=== PATIENT | male | born 1970 | race Caucasian/White ===

== ENCOUNTER 2020-08-24 01:43 | Outpatient (CLI) | payer OTHER, SELFPAY ==
[2020-08-24 18:40] LABS: SARS-CoV-2 RNA PCR Negative
== END 2020-08-24 01:44 | disposition home or self-care (01) ==
LOC: ANHCOVIDDT 01:43
PROVIDERS: PCP Internal Medicine; Visit Provider Internal Medicine Gastroenterology
DX: Z01.812 Encounter for preprocedural laboratory examination (principal); Z20.828 Contact with and (suspected) exposure to other viral communicable diseases
CPT/HCPCS: 87635; C9803; U0003

== ENCOUNTER 2020-08-26 00:47 | Day surgery (SDC) | payer OTHER, SELFPAY ==
[2020-08-22 10:27] VITALS: BMI 32.8
--- NOTE | 2020-08-26 11:56 | WPDANESEPPF ---
Anes - Initial Pre Proc Eval Procedure: Operation Date: 08/26/20 13:00 Proposed Procedures p Screening Colonoscopy - Ryan Dillard MD Date/Time: 08/26/20 11:56 Surgeon: Ryan Dillard MD Pre Op Diagnosis: Neoplasm Screening Patient Data Age: 49 Gender: M Height: 5 ft 8 in Weight: 98 kg Allergies Allergy/AdvReac Type Severity Reaction Status Date / Time Sulfa (Sulfonamide Allergy Mild Rash Verified 08/22/20 10:26 Antibiotics) Home Medications Medication Instructions Recorded Confirmed Type No Home Medications 08/22/20 08/22/20 History Patient hx anesthesia problems: none Family hx anesthesia problems: none [facility] Social History Social History Smoking status: Never smoker Second hand tobacco smoke exposure: No Alcohol intake: current Substance use: never Substance use type: does not use Living arrangements: with family Spiritual care concerns: No Anes - Eval Final PreProcedure Day of Procedure 08/26/20 11:56 Patient weight: overweight Heart: regular rate and rhythm Lungs: clear to auscultation Airway: Mallampati scale class II Neurological: alert and oriented Last oral intake: >/= 8 hours ASA classification: II Emergent: no Anesthetic plan: proceed Anesthesia type and monitoring: general GIVS and standard monitoring Informed Consent: The patient's anesthetic plan and its attendant risks and benefits were discussed with the patient/family/POA. Questions were solicited and answers provided to the satisfaction of the patient/family/POA.
[2020-08-26 12:04] VITALS: BP 121/78; PULSE 101; RESP 20; TEMP 36.7; O2SAT 98
[2020-08-26] MEDS: LACTATED RINGERS 1,000 ML 150 ML IV CONT (12:12)
--- NOTE | 2020-08-26 12:45 | PM.HPGS ---
History of Present Illness History of Present Illness Consent: Risks, benefits, and alternatives have been discussed and questions answered. Patient agrees to proceed with procedure. Chief complaint: Neoplasm Screening Narrative: Darron Wiggins is a 49 year old male here for first screening colon Review of Systems Constitutional: Constitutional: Denies headache(s) and Denies weakness Eyes: Eyes: Denies blurry vision ENT: Reports Normal hearing present, Denies headache(s) and Denies neck pain Cardiovascular: Cardiovascular: Denies chest pain and Denies dyspnea Respiratory: Respiratory: Denies dyspnea Gastrointestinal: Gastrointestinal: Reports no additional gastrointestinal complaints Genitourinary: Genitourinary: Denies dysuria Musculoskeletal: Musculoskeletal: Denies neck pain Integumentary/Breasts: Skin/Breast: Denies dry skin Neurologic: Reports Normal hearing present, Denies headache(s) and Denies weakness Psychiatric: Psychiatric: Denies anxiety Endocrine: Endocrine: Denies change in body appearance Hematologic/Lymphatic: Hematologic/Lymphatic: Denies easy bleeding Allergic/Immunologic: Allergic/Immunologic: Denies urticaria PMFSH Social History Social History Smoking status: Never smoker Second hand tobacco smoke exposure: No Alcohol intake: current Substance use: never Substance use type: does not use Living arrangements: with family Spiritual care concerns: No Meds Home Medications and Allergies Home Medications Medication Instructions Recorded Confirmed Type No Home Medications 08/22/20 08/22/20 History Allergies Allergy/AdvReac Type Severity Reaction Status Date / Time Sulfa (Sulfonamide Allergy Mild Rash Verified 08/26/20 12:03 Antibiotics) Vital Signs Vital Signs - 24 hr 08/26/20 12:04 Temperature 98.1 F Pulse Rate 101 H Respiratory Rate 20 Blood Pressure 121/78 Pulse Oximetry 98 Exam Const: General: comfortable and no acute distress HENMT: General nose exam: Normal nares present Eyes: General: appearance normal, both eyes and all related structures Neck: Neck: no JVD Resp: Auscultation: clear to auscultation bilaterally Cardio: Rate: regular rate Rhythm: regular rhythm GI: Inspection: non-distended GI Palp: Yes Soft to palpation Skin: General skin exam: normal color Neuro: General: gait normal Speech: normal speech Extrem: General: normal to inspection Psych: Mental Status: mental status grossly normal Assessment and Plan Assessment and plan (1) Colon cancer screening: Code(s): Z12.11 - Encounter for screening for malignant neoplasm of colon Status: Acute Assessment and Plan: will proceed with colonoscopy
[2020-08-26] MEDS: CENTRAL LINE FLUSH 10 ML XX (12:59)
[2020-08-26 13:05] VITALS: BP 105/78; PULSE 81; RESP 26; O2SAT 96
[2020-08-26 13:15] VITALS: BP 108/70; PULSE 76; RESP 24; O2SAT 96
[2020-08-26 13:25] VITALS: BP 115/66; PULSE 77; RESP 27; O2SAT 97
--- NOTE | 2020-08-26 14:29 | SUR.PHASEII ---
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
== END 2020-08-26 14:20 | disposition home or self-care (01) ==
PROVIDERS: PCP Internal Medicine; Visit Provider Internal Medicine Gastroenterology
PROC: 0DJD8ZZ Inspection of Lower Intestinal Tract, Via Natural or Artificial Opening Endoscopic (ICD-10-PCS; CPT 45378; principal; 2020-08-26 13:00)
DX: Z12.11 Encounter for screening for malignant neoplasm of colon (principal); D12.0 Benign neoplasm of cecum; D12.2 Benign neoplasm of ascending colon; K64.8 Other hemorrhoids
CPT/HCPCS: 45385; 45381; 87635; 88305; C9803; J2704; J7120; U0003

== ENCOUNTER 2022-05-20 17:01 | Emergency (ER) | payer OTHER, SELFPAY ==
[2022-05-20 17:07] VITALS: BP 145/73; PULSE 87; RESP 16; TEMP 36.6; O2SAT 99
--- NOTE | 2022-05-20 17:15 | ED.SKABFB ---
HPI - Skin/Abscess/Foreign Bdy General Chief complaint: Skin/Abscess/Foreign Body Stated complaint: Lac on left palm Time Seen by Provider: 05/20/22 17:15 Source: patient and RN notes reviewed History of Present Illness HPI narrative: Patient is a 51-year-old male who presents the urgent care with the spouse with complaints of a laceration to the left wrist/palmar area. Patient states that just prior to arrival he was opening a Father's Day gift with a pocket knife which slipped and hit his hand. Patient states that he applied pressure and came straight to the facility. Patient is not up-to-date on a tetanus shot. No other acute complaints. No acute distress noted. Patient aware of the plan of care. Some parts of this dictation were generated by voice recognition software and may contain typographical and/or grammatical inaccuracies. Related Data Home Medications Medication Instructions Recorded Confirmed No Home Medications 08/22/20 07/05/21 Allergies Allergy/AdvReac Type Severity Reaction Status Date / Time Sulfa (Sulfonamide Allergy Mild Rash Verified 05/20/22 17:27 Antibiotics) Review of Systems Review of Systems: CONSTITUTIONAL: Denies fever, chills, or sweats. EYES: Denies visual changes, redness, or discharge. ENT: Denies rhinorrhea, congestion, sore throat, or otalgia. CARDIOVASCULAR: Denies chest pain, palpitations, or edema. RESPIRATORY: Denies cough or dyspnea. GASTROINTESTINAL: Denies abdominal pain, nausea, vomiting, or diarrhea. GENITOURINARY: Denies dysuria or hematuria. SKIN: Reports of a laceration to the left wrist MUSCULOSKELETAL: Denies back pain, joint pain, or myalgia. NEUROLOGIC: Denies headache, numbness, or weakness. All other systems reviewed are negative, except as documented in HPI. [facility] Past Medical History Medical History Colon cancer screening Family History Family History Mother Patient's mother is in good health Sibling Patient's sister is in good health Father Family history of diabetes mellitus in first degree relative Other Diabetes mellitus Family history of arthritis Social History Social History Smoking status: Never smoker Second hand tobacco smoke exposure: No Alcohol intake: current Alcohol use details: socially. Substance use: never Substance use type: does not use Spiritual care concerns: No Comments At the time of my signature, I reviewed and agree with the nursing past medical, surgical, social, and family history. There is no relevant family history pertinent to the patient complaint. Exam Narrative: GENERAL: This is a well-nourished, well-developed patient, in no apparent distress. HEAD: normocephalic, atraumatic. EYES: PERRL. Sclera clear/white. Vision is grossly intact. EARS: External ears normal NOSE: External nose normal with no obvious nasal discharge, nares without redness, no rhinorrhea. THROAT: Mucous membranes moist NECK: Neck supple SKIN: 1 cm not gaping, superficial laceration just above the thenar eminence to the left wrist. NEURO: awake, alert, and oriented to person, place and time. There were no obvious focal neurologic abnormalities. EXTREMITIES: No clubbing, cyanosis, or edema. Range of motion to left upper extremity within normal limits. Positive strong left radial pulse with capillary refill less than 2 seconds. Course Course Level of Care: Express Care Visit Vital Signs Vital signs: Vital Signs Temperature 98 F 05/20/22 17:07 Pulse Rate 87 05/20/22 17:07 Respiratory Rate 16 05/20/22 17:07 Blood Pressure 145/73 H 05/20/22 17:07 Pulse Oximetry 99 05/20/22 17:07 Oxygen Delivery Room Air 05/20/22 17:07 Temperature 98 F 05/20/22 17:07 Pulse Rate 87 05/20/22 17:07 Respiratory Rate 16 05/20/22 17:07 Blood
[2022-05-20] MEDS: TETANUS,DIPHTHERIA,AC PERTUSSIS ADULT (0.5 ML) BOOSTRIX IM (17:22)
== END 2022-05-20 17:49 | disposition home or self-care (01) ==
PROVIDERS: Emergency Provider Nurse Practitioner Family; PCP Internal Medicine
DX: S61.512A Laceration without foreign body of left wrist, initial encounter (principal); W26.0XXA Contact with knife, initial encounter; G47.30 Sleep apnea, unspecified
CPT/HCPCS: 12001; 90471; 90715; 99212; G0463

== ENCOUNTER 2022-06-13 15:29 | Emergency (ER) | payer OTHER, SELFPAY ==
--- NOTE | ~2022-06-13 | XR_ITS ---
XR foot RT min 3V 06/13/2022 15:50 Indication: First metatarsal phalangeal joint pain. Procedure: 4 views right foot Comparison: 09/25/2004 Findings: Mild osteoarthritis of the first MTP joint. There is a loose body medial to the first metat arsal head. Lisfranc joint intact. No acute fracture or traumatic malalignment. No focal soft tissue abnormality. No foreign bodies. Impression: 1: No acute fracture. Reviewed, dictated and finalized at location A. Impression: 1: No acute fracture.
[2022-06-13 15:39] VITALS: BP 149/78; PULSE 81; RESP 16; TEMP 36.8; O2SAT 100
[2022-06-13 15:43] VITALS: BP 149/78; PULSE 81; RESP 16; TEMP 36.8; O2SAT 100
--- NOTE | 2022-06-13 15:47 | ED.LOWEXIN ---
HPI - Extremity Injury (Lower) General Chief Complaint: Extremity Injury, Lower Stated Complaint: Right Foot Injury Time Seen by Provider: 06/13/22 15:47 Source: patient Mode of arrival: ambulatory Limitations: no limitations History of Present Illness HPI Narrative: 51 yo M presents with c/o pain to R great toe for 2 days. States his foot was stepped on 3 days ago during basketball game but was not really painful. His told him he may have gout. No hx of gout previously. Ambulatory with limp. ROM and distal NV intact. All systems reviewed and negative except as noted above. Related Data Allergies Allergy/AdvReac Type Severity Reaction Status Date / Time Sulfa (Sulfonamide Allergy Mild Rash Verified 06/13/22 15:43 Antibiotics) Review of Systems Review of Systems: CONSTITUTIONAL: Denies fever, chills, or sweats. EYES: Denies visual changes, redness, or discharge. ENT: Denies rhinorrhea, congestion, sore throat, or otalgia. CARDIOVASCULAR: Denies chest pain, palpitations, or edema. RESPIRATORY: Denies cough or dyspnea. GASTROINTESTINAL: Denies abdominal pain, nausea, vomiting, or diarrhea. GENITOURINARY: Denies dysuria or hematuria. SKIN: Denies rash or itching. MUSCULOSKELETAL: Denies back pain or myalgia. Reports redness and joint pain to right great toe. NEUROLOGIC: Denies headache, numbness, or weakness. PSYCHIATRIC: Denies anxiety or depression. All other systems reviewed are negative, except as documented in HPI. [facility] Past Medical History Medical History Colon cancer screening Family History Family History Mother Patient's mother is in good health Sibling Patient's sister is in good health Father Family history of diabetes mellitus in first degree relative Other Diabetes mellitus Family history of arthritis Social History Social History Smoking status: Never smoker Second hand tobacco smoke exposure: No Alcohol intake: current Alcohol use details: socially. Substance use: never Substance use type: does not use Spiritual care concerns: No Comments At time of signature, agree with nursing past medical, surgical, social and family history. There is no relevant family history pertinent to the presenting complaint. Exam Narrative: GENERAL: This is a well-nourished, well-developed patient, in no apparent distress. HEAD: normocephalic, atraumatic. EYES: PERRL. Sclera clear/white. Vision is grossly intact. EARS: External ears normal NOSE: External nose normal NECK: Neck supple, non-tender without lymphadenopathy, masses or thyromegaly. CARDIOVASCULAR: Regular rate and rhythm without murmurs, gallops, or rubs. RESPIRATORY: Clear to auscultation. Breath sounds equal bilaterally. No wheezes, rales, or rhonchi. SKIN: warm, Dry, intact with no suspicious lesions or rash, good texture and turgor. Redness to right first MTP with swelling and tenderness on palpation. No warmth. NEURO: awake, alert, and oriented to person, place and time. There were no obvious focal neurologic abnormalities. EXTREMITIES: No joint tenderness, effusion, or edema noted. Course Course Level of Care: Express Care Visit Vital Signs Vital signs: Vital Signs Temperature 36.8 C 06/13/22 15:39 Pulse Rate 81 06/13/22 15:39 Respiratory Rate 16 06/13/22 15:39 Blood Pressure 149/78 H 06/13/22 15:39 Pulse Oximetry 100 06/13/22 15:39 Oxygen Delivery Room Air 06/13/22 15:39 Temperature 36.8 C 06/13/22 15:43 Pulse Rate 81 06/13/22 15:43 Respiratory Rate 16 06/13/22 15:43 Blood Pressure 149/78 H 06/13/22 15:43 Pulse Oximetry 100 06/13/22 15:43 Oxygen Delivery Room Air 06/13/22 15:43 Reviewed MDM - Extremity Injury (Lower) MDM Narrative Medical decision making narrative: Patient is aware of diagn
== END 2022-06-13 16:08 | disposition home or self-care (01) ==
PROVIDERS: Emergency Provider Nurse Practitioner Family; PCP Internal Medicine
DX: M10.9 Gout, unspecified (principal)
CPT/HCPCS: 73630; 99213; G0463

== ENCOUNTER 2023-10-11 02:57 | Day surgery (SDC) | payer OTHER, SELFPAY ==
[2023-10-01 09:45] VITALS: BMI 31.5
--- NOTE | 2023-10-09 11:33 | SUR.PREOP ---
Patient called regarding upcoming procedure. Reviewed preop instructions, appointment times, and procedure prep.
[2023-10-11 06:15] VITALS: BP 120/75; PULSE 85; RESP 18; TEMP 36.2; O2SAT 98; BMI 31.2
[2023-10-11] MEDS: LACTATED RINGERS 1,000 ML 150 ML IV CONT (06:34)
--- NOTE | 2023-10-11 06:52 | P.PNAN_ITS ---
Anes - Initial Pre Proc Eval Procedure: Operation Date: 10/11/23 07:30 Proposed Procedures p Screening Colonoscopy - Ryan Dillard MD Date/Time: 10/11/23 06:52 Surgeon: Ryan Dillard MD Pre Op Diagnosis: neoplasm screening Patient Data Age: 53 Gender: M Height: 1.73 m Weight: 93.2 kg Last Vital Signs Temp 36.2 C L 10/11/23 06:15 Pulse 85 10/11/23 06:15 Resp 18 10/11/23 06:15 BP 120/75 10/11/23 06:15 Pulse Ox 98 10/11/23 06:15 Allergies Allergy/AdvReac Type Severity Reaction Status Date / Time Sulfa (Sulfonamide Allergy Mild Rash Verified 10/01/23 09:44 Antibiotics) Home Medications Medication Instructions Recorded Confirmed Type No Home Medications 07/17/22 10/01/23 History Patient hx anesthesia problems: none Family hx anesthesia problems: none Results Review: All pre-operative results and documents have been reviewed as part of the pre- operative evaluation. [facility] Past Medical History Medical History (Updated 10/11/23 @ 06:53 by Janusz Rachel MD) Colon cancer screening Colon polyp Obesity SUSHANT on CPAP Surgical History Surgical History (Updated 10/11/23 @ 06:53 by Janusz Rachel MD) H/O colonoscopy History of shoulder surgery Family History Family History Mother Patient's mother is in good health Sibling Patient's sister is in good health Father Family history of diabetes mellitus in first degree relative Other Diabetes mellitus Family history of arthritis Social History Social History Smoking status: Never smoker Second hand tobacco smoke exposure: No Alcohol intake: current Drinks per week: 1 Alcohol use details: socially. Substance use: never Substance use type: does not use Living arrangements: with family Spiritual care concerns: No Anes - Eval Final PreProcedure Day of Procedure 10/11/23 06:52 Patient weight: obese Heart: regular rate and rhythm Lungs: clear to auscultation Airway: Mallampati scale class III and special considerations poor opening Neurological: alert and oriented Last oral intake: >/= 8 hours ASA classification: III Emergent: no Anesthetic plan: proceed Anesthesia type and monitoring: general GIVS and standard monitoring Results Review: All pre-operative results and documents have been reviewed as part of the pre- operative evaluation. Informed Consent: The patient's anesthetic plan and its attendant risks and benefits were discussed with the patient/family/POA. Questions were solicited and answers provided to the satisfaction of the patient/family/POA.
--- NOTE | 2023-10-11 07:29 | PM.HPGS ---
History of Present Illness History of Present Illness Consent: Risks, benefits, and alternatives have been discussed and questions answered. Patient agrees to proceed with procedure. Chief complaint: neoplasm screening Narrative: Darron Wiggins is a 53 year old male with colon polyps in 2019 Review of Systems Constitutional: Constitutional: Denies headache(s) and Denies weakness Eyes: Eyes: Denies blurry vision ENT: Reports Normal hearing present, Denies headache(s) and Denies neck pain Cardiovascular: Cardiovascular: Denies chest pain and Denies dyspnea Respiratory: Respiratory: Denies dyspnea Gastrointestinal: Gastrointestinal: Reports no additional gastrointestinal complaints Genitourinary: Genitourinary: Denies dysuria Musculoskeletal: Musculoskeletal: Denies neck pain Integumentary/Breasts: Skin/Breast: Denies dry skin Neurologic: Reports Normal hearing present, Denies headache(s) and Denies weakness Psychiatric: Psychiatric: Denies anxiety Endocrine: Endocrine: Denies change in body appearance Hematologic/Lymphatic: Hematologic/Lymphatic: Denies easy bleeding Allergic/Immunologic: Allergic/Immunologic: Denies urticaria [facility] Past Medical History Medical History (Updated 10/11/23 @ 07:30 by Ryan Dillard MD) Adenomatous colon polyp Colon cancer screening Colon polyp Obesity SUSHANT on CPAP Surgical History Surgical History (Updated 10/11/23 @ 06:53 by Janusz Rachel MD) H/O colonoscopy History of shoulder surgery Family History Family History Mother Patient's mother is in good health Sibling Patient's sister is in good health Father Family history of diabetes mellitus in first degree relative Other Diabetes mellitus Family history of arthritis Social History Social History Smoking status: Never smoker Second hand tobacco smoke exposure: No Alcohol intake: current Drinks per week: 1 Alcohol use details: socially. Substance use: never Substance use type: does not use Living arrangements: with family Spiritual care concerns: No Meds Home Medications and Allergies Home Medications Medication Instructions Recorded Confirmed Type No Home Medications 07/17/22 10/01/23 History Allergies Allergy/AdvReac Type Severity Reaction Status Date / Time Sulfa (Sulfonamide Allergy Mild Rash Verified 10/01/23 09:44 Antibiotics) Vital Signs Vital Signs - 24 hr 10/11/23 06:15 Temperature 97.1 F L Pulse Rate 85 Respiratory Rate 18 Blood Pressure 120/75 Pulse Oximetry 98 Exam Const: General: comfortable and no acute distress HENMT: Face/Nose/Sinus: Normal nares present Eyes: General: appearance normal, both eyes and all related structures Neck: Neck: no JVD Resp: Auscultation: clear to auscultation bilaterally Cardio: Rate: regular rate Rhythm: regular rhythm GI: Inspection: non-distended GI Palp: Yes Soft to palpation Skin: General skin exam: normal color Neuro: General: gait normal Speech: normal speech Extrem: General: normal to inspection Psych: Mental Status: mental status grossly normal Assessment and Plan Assessment and plan (1) Adenomatous colon polyp: Code(s): D12.6 - Benign neoplasm of colon, unspecified Status: Acute Assessment and Plan: colonoscopy
[2023-10-11 07:46] VITALS: BP 104/63; PULSE 74; RESP 19; O2SAT 98
[2023-10-11 07:56] VITALS: BP 101/67; PULSE 70; RESP 19; O2SAT 97
[2023-10-11 08:04] VITALS: BP 108/74; PULSE 73; RESP 22; O2SAT 98
== END 2023-10-11 08:12 | disposition home or self-care (01) ==
PROVIDERS: PCP Internal Medicine; Visit Provider Internal Medicine Gastroenterology
PROC: 0DJD8ZZ Inspection of Lower Intestinal Tract, Via Natural or Artificial Opening Endoscopic (ICD-10-PCS; CPT 45378; principal; 2023-10-11 07:30)
DX: Z12.11 Encounter for screening for malignant neoplasm of colon (principal); K64.8 Other hemorrhoids; Z86.010 Personal history of colon polyps; G47.33 Obstructive sleep apnea (adult) (pediatric); E66.9 Obesity, unspecified; Z68.31 Body mass index [BMI] 31.0-31.9, adult
CPT/HCPCS: 45378; J2001; J2704; J7120